=== PATIENT | male | born 1975 ===

== ENCOUNTER 2023-12-30 09:50 | Emergency (ER) | payer BC ==
[2023-12-30] MEDS: cloNIDine 0.1 MG Tab PO ONE (10:04)
[2023-12-30 10:23] LABS: BASOPHILS ABSOLUTE AUTO 0.02 K/uL (0.00-0.20); BASOPHILS PERCENT AUTO 0.3 % (0.0-2.0); EOSINOPHILS ABSOLUTE AUTO 0.05 K/uL (0.00-0.50); EOSINOPHILS PERCENT AUTO 0.6 % (0.0-5.0); HEMOGLOBIN 15.5 g/dL (13.1-16.8); LYMPHOCYTES ABSOLUTE AUTO 2.17 K/uL (0.50-3.50); LYMPHOCYTES PERCENT AUTO 28.1 % (10.0-50.0); MEAN CORPUSCULAR HEMOGLOBIN 29.5 pg (28.2-33.3); MEAN CORPUSCULAR HGB CONC 34.4 g/dL (31.7-36.0); MEAN CORPUSCULAR VOLUME 85.6 fL (84.0-98.0); MONOCYTES ABSOLUTE AUTO 0.49 K/uL (0.00-1.00); MONOCYTES PERCENT AUTO 6.3 % (2.0-14.0); NEUTROPHILS ABSOLUTE AUTO 4.99 K/uL (1.40-7.00); NEUTROPHILS PERCENT AUTO 64.7 % (45.0-80.0); PLATELET COUNT,PLT 228 K/uL (150-350); RED BLOOD CELL COUNT 5.26 M/uL (4.33-5.41); RED CELL DISTRIBUTION WIDTH 13.6 % (11.2-14.1); WHITE BLOOD CELL COUNT,WBC 7.7 K/uL (4.0-10.2)
[2023-12-30 10:44] LABS: ALBUMIN 3.8 g/dL (3.4-5.0); ANION GAP 6.6 meq/L (7-15); BILIRUBIN TOTAL 0.7 mg/dL (0.2-1.0); CALCIUM 8.8 mg/dL (8.5-10.1); CARBON DIOXIDE,CO2 28.4 mmol/L (21.0-32.0); CREATININE 1.33 mg/dL (0.51-1.17); EST CRCL DRUG DOSING (CG) 64.29 mL/min; MAGNESIUM 1.8 mg/dL (1.8-2.4); PROTEIN TOTAL,TP 7.2 g/dL (6.4-8.2)
[2023-12-30] MEDS: Losartan 25 MG Tab PO ONE (11:00)
[2023-12-30] MEDS: amLODIPine 5 MG Tab PO ONE (11:01)
[2023-12-30 11:02] LABS: CORONAVIRUS COVID-19 NAA NEGATIVE (NEGATIVE); INFLUENZA A NAA NEGATIVE (NEGATIVE); INFLUENZA B NAA NEGATIVE (NEGATIVE); RESPIRATORY SYNCYTIAL VIR NAA NEGATIVE (NEGATIVE)
[2023-12-30] MEDS: Sodium Chloride 0.9% 1,000 ML IV ONE (11:10)
[2023-12-30] MEDS: Labetalol 100 MG Tab PO ONE (12:46)
== END 2023-12-30 16:10 | disposition home or self-care (01) ==
LOC: LL.ED 09:50
DX: I16.0 Hypertensive urgency (principal); I10 Essential (primary) hypertension; Z91.018 Allergy to other foods; Z79.899 Other long term (current) drug therapy
CPT/HCPCS: 0241U; 36415; 80053; 83605; 83735; 84484; 85025; 93005; 93010; 99284; A9270-GY; J7030